=== PATIENT | male | born 1965 | race Caucasian/White ===

== ENCOUNTER 2016-11-21 10:07 | Day surgery (SDC) | payer MEDICAID, MEDICARE ==
[~2016-11-21] VITALS: Ht 172.7 cm; Wt 90.0 kg
[~2016-11-21 10:07] MED LIST: BUPIVACAINE/PF 0.5% ONE; EPINEPHRINE 1 MG/ML, 1ML ONE; FENTANYL PF 100 MCG/2ML ONE; LIDOCAINE/PF 1.5%-EPI 1:200K, 30ML ONE; MIDAZOLAM 1 MG/ML, 2ML ONE
[2016-11-21] MEDS ORDERED: LACTATED RINGERS 1,000 ML IV SCH (10:23)
[2016-11-21 10:34] VITALS: BP 135/86
[2016-11-21] MEDS ORDERED: ALBU0.63 NEB (10:34)
[2016-11-21] MEDS ORDERED: HYDR-879 PO (10:34)
[2016-11-21] MEDS ORDERED: FLUT1AER PO (10:34)
[2016-11-21] MEDS ORDERED: TERA5CAP3 PO (10:34)
[2016-11-21] MEDS ORDERED: CEFAZOLIN 1,000 MG ONE (10:46)
[2016-11-21] MEDS ORDERED: PHENYLEPHRINE 10 MG/ML ONE (10:46)
[2016-11-21] MEDS ORDERED: DEXAMETHASONE 4 MG/ML, 1ML ONE (10:46)
[2016-11-21] MEDS ORDERED: PROPOFOL 10 MG/ML, 20ML ONE (10:46)
[2016-11-21] MEDS ORDERED: SUCCINYLCHOLINE 20 MG/ML, 10ML ONE (10:46)
[2016-11-21] MEDS ORDERED: ONDANSETRON 2MG/ML, 2ML ONE (10:46)
[2016-11-21] MEDS ORDERED: ACETAMINOPHEN 325 MG TABLET PO PRN (11:30)
[2016-11-21] MEDS ORDERED: ONDANSETRON 2MG/ML, 2ML IVPush PRN (11:30)
[2016-11-21] MEDS ORDERED: MEPERIDINE/PF 25MG/0.5ML IVPush PRN (11:30)
[2016-11-21] MEDS ORDERED: HYDROmorphone 1 MG/ML, 1ML IV PRN (11:30)
[2016-11-21] MEDS ORDERED: ALBUTEROL/IPRATROPIUM 2.5MG/0.5MG, 3 ML NPPB PRN (11:30)
[2016-11-21] MEDS ORDERED: PROMETHAZINE 25 MG/ML, 1ML IV PRN (11:30)
[2016-11-21] MEDS ORDERED: LABETALOL 5MG/ML, 20ML IV PRN (11:30)
[2016-11-21] MEDS ORDERED: MIDAZOLAM 1 MG/ML, 2ML IV PRN (11:30)
[2016-11-21] MEDS ORDERED: OXYcodone 5 MG/5 ML ORAL.SOL UDC PO PRN (11:30)
[2016-11-21] MEDS ORDERED: hydrALAzine 20 MG/ML, 1ML IV PRN (11:30)
[2016-11-21] MEDS ORDERED: FENTANYL PF 100 MCG/2ML IV PRN (11:30)
== END 2016-11-21 14:30 ==
LOC: OUT 10:07
PROVIDERS: ATTEND Orthopaedic Surgery
DX: M19.011 Primary osteoarthritis, right shoulder (principal); M65.811 Other synovitis and tenosynovitis, right shoulder; M24.111 Other articular cartilage disorders, right shoulder; M75.41 Impingement syndrome of right shoulder; M94.211 Chondromalacia, right shoulder; Z88.1 Allergy status to other antibiotic agents; Z88.8 Allergy status to other drugs, medicaments and biological substances; Z91.018 Allergy to other foods
CPT/HCPCS: 29823; 29824; 29826; J0171; J0330; J0690; J1100; J2250; J2370; J2405; J2704; J3010; J3490

== ENCOUNTER 2018-10-05 22:59 | Emergency (ER) | payer MEDICARE, MEDICAID ==
[~2018-10-05] VITALS: Ht 172.7 cm; Wt 95.0 kg
[~2018-10-05 22:59] MED LIST changes: +ALBU0.63 NEB; -BUPIVACAINE/PF 0.5% ONE; -EPINEPHRINE 1 MG/ML, 1ML ONE; -FENTANYL PF 100 MCG/2ML ONE; +FLUT1AER PO; +HYDR-3622 PO; -LIDOCAINE/PF 1.5%-EPI 1:200K, 30ML ONE; -MIDAZOLAM 1 MG/ML, 2ML ONE; +TERA5CAP3 PO
[2018-10-05 23:48] LABS: MICROSCOPIC AUTO
[2018-10-05 23:50] LABS: CULTURE INDICATED? YES
--- NOTE | 2018-10-06 00:05 | NUR ---
Pt laying on right lateral side, holding himself. Pt c/o increased pain in testicles after ultrasound.
[2018-10-06 00:15] LABS: MEAN CORPUSCULAR HEMOGLOBIN 30.1 pg (27.5-34.5); MEAN CORPUSCULAR HGB CONC 33.2 g/dL (33.2-36.2); MEAN CORPUSCULAR VOLUME 90.8 fL (81-97); MEAN PLATELET VOLUME 6.7 fL (7.4-10.4); PLATELET COUNT 281 x10^3/uL (130-400); RED BLOOD COUNT 4.17 x10^6/uL (4.38-5.82); RED CELL DISTRIBUTION WIDTH 15.2 % (9.4-14.8)
[2018-10-06 00:20] LABS: ALBUMIN 3.4 g/dL (3.4-5.0); ANION GAP 7 mmol/L (5-15); CALCIUM 8.9 mg/dL (8.5-10.1); CHLORIDE 102 mmol/L (98-107); CREATININE 0.97 mg/dL (0.7-1.3)
[2018-10-06] MEDS ORDERED: OXYcodone/APAP 5/325MG TABLET PO ONE (00:30)
[2018-10-06] MEDS ORDERED: CEFTRIAXONE 1,000 MG IM ONE (00:30)
[2018-10-06] MEDS ORDERED: CEFTRIAXONE 1,000 MG ONE (00:31)
[2018-10-06] MEDS ORDERED: LIDOCAINE-MPF 1%, 2ML ONE (00:32)
[2018-10-06] MEDS ORDERED: OXYcodone/APAP 5/325MG TABLET ONE (00:32)
[2018-10-06 00:49] LABS: BASOPHILS # (AUTO) 0.03 x10^3/uL (0-0.1); BASOPHILS % (AUTO) 0 % (0-1); EOSINOPHILS # (AUTO) 0.21 x10^3/uL (0-0.4); EOSINOPHILS % (AUTO) 1 % (1-7); LYMPHOCYTES # (AUTO) 0.96 x10^3/uL (1-3.4); LYMPHOCYTES % (AUTO) 5 % (22-44); MD SCAN; MONOCYTES # (AUTO) 1.01 x10^3/uL (0.2-0.8); MONOCYTES % (AUTO) 5 % (2-9); NEUTROPHILS # (AUTO) 16.58 x10^3/uL (1.8-6.8); NEUTROPHILS % (AUTO) 88 % (42-75)
[2018-10-06 01:19] VITALS: BP 138/99
== END 2018-10-06 01:21 | disposition home or self-care (01) ==
LOC: ED 23:25
DX: N30.00 Acute cystitis without hematuria (principal); N45.1 Epididymitis; J45.909 Unspecified asthma, uncomplicated
CPT/HCPCS: 36415; 74176; 76870; 80048; 81001; 82040; 85025; 87077; 87086; 87186; 96372; 99284; J0696

== ENCOUNTER 2018-10-16 22:44 | Emergency (ER) | payer MEDICAID, MEDICARE ==
[~2018-10-16] VITALS: Ht 172.7 cm; Wt 93.9 kg
[2018-10-17 01:53] VITALS: BP 142/82
== END 2018-10-17 02:21 | disposition home or self-care (01) ==
LOC: ED 23:35
DX: N45.1 Epididymitis (principal); J45.909 Unspecified asthma, uncomplicated
CPT/HCPCS: 36415; 76870; 80048; 81001; 82040; 85025; 99284

== ENCOUNTER 2018-10-31 18:25 | Emergency (ER) | payer MEDICAID, MEDICARE ==
[~2018-10-31] VITALS: Ht 172.7 cm; Wt 99.8 kg
[2018-10-31 23:07] VITALS: BP 122/64
== END 2018-10-31 23:30 | disposition home or self-care (01) ==
LOC: ED 20:27
DX: R10.12 Left upper quadrant pain (principal); J45.909 Unspecified asthma, uncomplicated
CPT/HCPCS: 36415; 74177; 80053; 81001; 83605; 83690; 84145; 84484; 85025; 87040; 87086; 94640; 96374; 99284; J2270; Q9967

== ENCOUNTER 2019-02-09 01:43 | Emergency (ER) | payer MEDICARE ==
[~2019-02-09] VITALS: Ht 172.7 cm; Wt 98.0 kg
[2019-02-09 01:44] VITALS: BP 159/94
--- NOTE | 2019-02-09 02:02 | NUR ---
difficulty urinating, nausea, denies vomitting. "my bladder area is uncomfortable and my kidneys and stuff" hx bph, asthma
--- NOTE | 2019-02-09 02:06 | NUR ---
DEVI ROWLAND JANETTE IN TO ASSESS PT. PROSTATE EXAM CONDUCTED.
[2019-02-09] MEDS ORDERED: ONDANSETRON ODT 8 MG PO STA (02:08)
[2019-02-09 02:21] LABS: MICROSCOPIC AUTO
[2019-02-09 02:22] LABS: CULTURE INDICATED? YES
[2019-02-09 02:30] LABS: BASOPHILS # (AUTO) 0.05 x10^3/uL (0-0.1); BASOPHILS % (AUTO) 1 % (0-1); EOSINOPHILS # (AUTO) 0.86 x10^3/uL (0-0.4); EOSINOPHILS % (AUTO) 10 % (1-7); LYMPHOCYTES % (AUTO) 19 % (22-44); MD NO; MEAN CORPUSCULAR HGB CONC 33.4 g/dL (33.2-36.2); MEAN CORPUSCULAR VOLUME 92.8 fL (81-97); MEAN PLATELET VOLUME 7.3 fL (7.4-10.4); MONOCYTES # (AUTO) 0.97 x10^3/uL (0.2-0.8); MONOCYTES % (AUTO) 11 % (2-9); NEUTROPHILS # (AUTO) 5.05 x10^3/uL (1.8-6.8); NEUTROPHILS % (AUTO) 59 % (42-75); PLATELET COUNT 329 x10^3/uL (130-400); RED BLOOD COUNT 4.79 x10^6/uL (4.38-5.82); RED CELL DISTRIBUTION WIDTH 14.6 % (9.4-14.8)
[2019-02-09] MEDS ORDERED: HYDROcodone/APAP 5/325 TABLET PO ONE (02:30)
[2019-02-09] MEDS ORDERED: ONDANSETRON ODT 8 MG ONE (02:31)
[2019-02-09] MEDS ORDERED: HYDROcodone/APAP 5/325 TABLET ONE (02:32)
--- NOTE | 2019-02-09 02:39 | NUR ---
Break RN: patient medicated for pain and nausea. Bladder scan 170 ml.
[2019-02-09 02:42] LABS: ALANINE AMINOTRANSFERASE 53 U/L (12-78); ALBUMIN 3.8 g/dL (3.4-5.0); ANION GAP 7 mmol/L (5-15); CALCIUM 9.1 mg/dL (8.5-10.1); CHLORIDE 104 mmol/L (98-107); CREATININE 1.07 mg/dL (0.7-1.3)
[2019-02-09 02:44] LABS: ALKALINE PHOSPHATASE 60 U/L (45-117); BILIRUBIN,TOTAL 0.6 mg/dL (0.2-1.0); TOTAL PROTEIN 8.3 g/dL (6.4-8.2)
== END 2019-02-09 03:21 | disposition home or self-care (01) ==
LOC: ED 03:15
DX: R10.0 Acute abdomen (principal); R11.0 Nausea; J45.909 Unspecified asthma, uncomplicated
CPT/HCPCS: 36415; 80053; 81001; 85025; 87086; 99284; Q0162

== ENCOUNTER 2019-05-17 13:46 | Emergency (ER) | payer MEDICARE ==
[~2019-05-17] VITALS: Ht 172.7 cm; Wt 104.0 kg
[~2019-05-17 13:46] MED LIST changes: +ALBU18HF IH; +FLUT1BLS INH
--- NOTE | 2019-05-17 14:55 | NUR ---
PT TO ROOM. URINE SAMPLE PROVIDED. MD IS BEDSIDE
[2019-05-17 15:25] LABS: BASOPHILS # (AUTO) 0.15 x10^3/uL (0-0.1); BASOPHILS % (AUTO) 2 % (0-1); EOSINOPHILS % (AUTO) 7 % (1-7); LYMPHOCYTES # (AUTO) 2.52 x10^3/uL (1-3.4); LYMPHOCYTES % (AUTO) 29 % (22-44); MD NO; MEAN CORPUSCULAR HEMOGLOBIN 30.6 pg (27.5-34.5); MEAN CORPUSCULAR HGB CONC 33.9 g/dL (33.2-36.2); MEAN CORPUSCULAR VOLUME 90.4 fL (81-97); MEAN PLATELET VOLUME 7.5 fL (7.4-10.4); MONOCYTES # (AUTO) 0.64 x10^3/uL (0.2-0.8); MONOCYTES % (AUTO) 7 % (2-9); NEUTROPHILS # (AUTO) 4.93 x10^3/uL (1.8-6.8); NEUTROPHILS % (AUTO) 56 % (42-75); PLATELET COUNT 370 x10^3/uL (130-400); RED BLOOD COUNT 4.38 x10^6/uL (4.38-5.82); RED CELL DISTRIBUTION WIDTH 13.5 % (9.4-14.8)
[2019-05-17 15:27] LABS: MICROSCOPIC AUTO
[2019-05-17 15:28] LABS: CULTURE INDICATED? YES
[2019-05-17 15:34] LABS: ALANINE AMINOTRANSFERASE 46 U/L (12-78); ALBUMIN 3.6 g/dL (3.4-5.0); ANION GAP 7 mmol/L (5-15); CALCIUM 8.9 mg/dL (8.5-10.1); CHLORIDE 106 mmol/L (98-107); CREATININE 1.05 mg/dL (0.7-1.3)
[2019-05-17 15:37] LABS: ALKALINE PHOSPHATASE 54 U/L (45-117); BILIRUBIN,TOTAL 0.7 mg/dL (0.2-1.0); TOTAL PROTEIN 7.6 g/dL (6.4-8.2)
[2019-05-17 15:53] VITALS: BP 108/84
--- NOTE | 2019-05-17 15:53 | NUR ---
PT IS RESTING IN [facility]. AWAITING TEST RESULTS. NO NEEDS AT THIS TIME.
== END 2019-05-17 16:40 | disposition home or self-care (01) ==
LOC: ED 15:50
DX: N30.00 Acute cystitis without hematuria (principal); J45.909 Unspecified asthma, uncomplicated
CPT/HCPCS: 36415; 80053; 81001; 85025; 87086; 99283

== ENCOUNTER 2019-06-23 21:43 | Emergency (ER) | payer MEDICARE ==
[~2019-06-23] VITALS: Ht 175.3 cm; Wt 100.0 kg
[2019-06-23 21:46] VITALS: BP 146/84
[2019-06-23] MEDS ORDERED: CLINDAMYCIN 300 MG CAPSULE PO ONE (22:00)
== END 2019-06-23 22:27 | disposition home or self-care (01) ==
LOC: ED 21:45
DX: L03.116 Cellulitis of left lower limb (principal); J45.909 Unspecified asthma, uncomplicated
CPT/HCPCS: 99283